=== PATIENT | male | born 1995 | race Caucasian/White ===

== ENCOUNTER 2023-01-24 10:39 | Emergency (ER) | payer SELFPAY ==
[2023-01-24 10:41] VITALS: BP 139/89; PULSE 60; RESP 14; TEMP 36.2; O2SAT 99; BMI 21.4
--- NOTE | 2023-01-24 10:52 | EX.ED.UPPERE ---
HPI History of Present Illness Chief Complaint: Upper Extremity Injury Detail of Chief Complaint: Injury left long finger 1 week ago at work Informant: patient Occured/Mechanism Comment: Sidra. He felt it did not go to the bone and did not seek medical attention. He presents now because of redness and swelling. Onset/Context/Timing Onset: Days Context: Sudden Onset Timing: Continuous Quality of Pain: Dull and Aching Current Severity: Mild Maximum Severity: Moderate Worsened by: Palpation Relieved by: Nothing Associated Symptoms Associated Symptoms: Negative for Parasthesia, Weakness or Loss of Funtion Narrative Narrative: Patient is a 27-year-old male who presents because of redness and swelling to his left long finger. He is right-hand. He injured the finger a week ago at work. He did not seek medical attention at that time. He has no allergies. He is on no medication. He has no past medical history. He denies fever or chills. He denies paresthesia, anesthesia or motor weakness. Tetanus Immunization: 5-10 years Prior similar symptoms: No Recent Illness/Hospitalization: No [facility] Medical History (Updated 01/24/23 @ 11:[address] Juan Suazo MD) Work related injury Medical History no medical history no medical history Allergy/AdvReac Type Severity Reaction Status Date / Time No Known Allergies Allergy Verified 01/24/23 10:44 Surgical History no surgical history no surgical history Social History Smoking Status: Unknown if ever smoked ROS ROS ED Constitutional Constitutional ED: Denies chills, fever(s) or subjective Integumentary Reports rash Hematologic/Lymphatic Hematologic/Lymphatic: Denies easy bleeding or easy bruising EXAM Physical Exam Const Vital Signs: 01/24/23 10:41 Temperature 97.2 F L Temperature Source Temporal Pulse Rate 60 Respiratory Rate 14 Blood Pressure 139/89 H Blood Pressure Mean 105 Pulse Ox 99 Oxygen Delivery Method Room Air Positive well nourished and well developed General Appearance ED: well developed and NAD HEENT Reports moist mucous membranes normocephalic and atraumatic Eyes PERRL and EOMs intact bilaterally Neck full ROM and supple Resp normal respiratory effort Cardio regular rate and regular rhythm Extremity Extremity Narrative: There is swelling radial side left long finger. Sensation is intact. Capillary refill is normal. The extensor commonest tendon is functionally intact. The flexor digitorum superficialis and flexor digitorum profundus are intact. Neuro oriented x3, CN's II-XII intact bilaterally, no focal motor deficits and no sensory deficits noted Sensorium / Orientation: alert Psych mental status grossly normal Skin Skin Narrative: Slight erythema radial side of left long finger consistent with paronychia. There appears to be fluctuance. MDM MDM MDM Narrative Medical decision making narrative: Concern patient has paronychia. Attempted to unroofed with hypodermic needle. Blood was obtained. There was no purulent material noted. In light of this will perform formal I&D over the area of redness and fluctuance. There is no induration. There is no lymphangitis. There is no epitrochlear lymphadenopathy. Procedures Other Procedures Procedure(s): I&D abscess left long finger. Carpal block was placed. Patient still felt needlestick. The digit was anesthetized by digital block. Incision was made radial side with a 15 blade. Incision length 5 mm. There was a small pocket of purulent material that was noted. Blunt dissection revealed slightly more purulent material. Since there is no cellulitis antibiotics were not ordered. Discharge Plan Triage Chief Complaint: Upper Extremity Injury ED Provider: Juan Suazo Dx/Rx/DC Orders Clinical Impression: Abscess of left middle finger Instructions: ED Abscess Incision And Drainage Primary Care Provider: Care Physician,No Primary Referrals: Christiane Spicer [Non-Staff] - 2 Days for wound check Care Physician,No Primary [Primary Care Provider] - Disposition Disposition: Home, Self Care
[2023-01-24] MEDS: Lidocaine 1% (20 ml mdv) 20 ML Vial INFILT (10:57)
--- NOTE | 2023-01-24 12:10 | ED.RN ---
pt did not want to file workers comp
== END 2023-01-24 12:11 | disposition home or self-care (01) ==
PROVIDERS: Emergency Provider Emergency Medicine; Visit Provider Emergency Medicine
DX: L02.512 Cutaneous abscess of left hand (principal)
CPT/HCPCS: 26010; 99282

== ENCOUNTER 2023-05-20 22:56 | Emergency (ER) | payer SELFPAY ==
[2023-05-20 22:57] VITALS: BP 140/80; PULSE 69; RESP 20; TEMP 35.7; O2SAT 98; BMI 23.6
--- NOTE | 2023-05-20 23:07 | RAD_ITS ---
STUDY: X-RAY - RIGHT WRIST REASON FOR EXAM: Male, 28 years old. injury TECHNIQUE: 3 view(s) of the wrist were obtained. COMPARISON: None. FINDINGS: Normal visualized distal radius and ulna. Normal radiocarpal articulation. Normal distal radioulnar articulation. Subtle step-off with lucency through the triquetrum/distal forearm bone, cannot exclude a fracture. Normal carpal articulations. Normal carpometacarpal articulation of the thumb. Normal second through fifth carpometacarpal articulations. Normal visualized metacarpal bones. Soft tissue swelling through the distal forearm and dorsum of the wrist. There is no demonstrated acute fracture. RAD/Wrist min 3 Views IMPRESSION: Soft tissue swelling as described. Cannot exclude fracture through the pisiform/triquetrum. Correlation with physical exam and clinical history recommended. If indicated, this may be further assessed with CT of the wrist. Electronically Signed: Talia Caro MD at 23:35 EST ,
--- NOTE | 2023-05-20 23:08 | EX.ED.UPPERE ---
HPI History of Present Illness Chief Complaint: Upper Extremity Injury Informant: patient Occured/Mechanism Mechanism/Context: Yes injury Comment: fell off skateboard while going down a hill, injured R wrist only; unsure of exact mechanism of injury to it Onset/Context/Timing Onset: Today Context: Sudden Onset Timing: Continuous Quality of Pain: Aching Location: R wrist Current Severity: Moderate Maximum Severity: Moderate Worsened by: movement Relieved by: remaining still Narrative Narrative: [facility] Medical History TBI (traumatic brain injury) Work related injury Home Medications NK 05/20/23 [History Last Taken Unknown] Allergy/AdvReac Type Severity Reaction Status Date / Time No Known Allergies Allergy Verified 05/20/23 22:58 Social History Smoking Status: Current some day smoker tobacco type: cigarettes and e-cigarettes ROS ROS ED Constitutional Constitutional ED: Denies chills or fever(s) Musculoskeletal Musculoskeletal: Reports extremity pain; Denies neck pain Integumentary Denies Abrasions, rash or wounds Neurologic Neurologic: Denies paresthesias or weakness EXAM Physical Exam Const Vital Signs: 05/20/23 22:57 Temperature 96.2 F L Temperature Source Temporal Pulse Rate 69 Respiratory Rate 20 H Blood Pressure 140/80 H Blood Pressure Mean 100 Pulse Ox 98 Oxygen Delivery Method Room Air Positive well nourished and well developed General Appearance ED: well developed and NAD Neck full ROM and supple Back/Spine normal ROM and normal to inspection Extremity Extremity Narrative: Limited range of motion to the right wrist. Tenderness mostly mid dorsal carpus, mild swelling and tenderness of the distal ulna but none to distal radius. No tenderness in the snuffbox. No tenderness in the metacarpals or otherwise in the hand and no tenderness in the elbow/radial head. Neuro oriented x3, no focal motor deficits and no sensory deficits noted Sensorium / Orientation: alert Psych mental status grossly normal and thought process normal Skin no wounds Rashes: no rashes MDM MDM MDM Narrative Medical decision making narrative: Three-view x-ray series of the right wrist on my interpretation shows possibility of a nondisplaced fracture through the pisiform. Interestingly, radiology was in agreement that this was unable to be ruled out and suspicious. I do not think further imaging is necessary since this is consistent with where the patient has pain and tenderness. Therefore he was splinted. See the procedure note. He will follow-up with orthopedics. Procedures Upper Extremity Splints Upper Extremity Splint: Orthoglass and - (short arm AP) Splint Fabrication: Fabricated (NVID after placement) Location: Right Discharge Plan Triage Chief Complaint: Upper Extremity Injury ED Provider: Demetri Granda Dx/Rx/DC Orders Clinical Impression: Fracture of right wrist Instructions: ED Fracture, Wrist, General Prescriptions: No Action NK Primary Care Provider: Care Physician,No Primary Referrals: Venkata Ramsey MD [Med Staff - Active Staff] - (call for appt to be seen within next 2 weeks) Care Physician,No Primary [Primary Care Provider] - Disposition Disposition: Home, Self Care
[2023-05-21] MEDS: traMADol 50 MG Tablet PO (00:20)
[2023-05-21 00:22] VITALS: BP 122/68; PULSE 88; RESP 16; TEMP 36.7; O2SAT 98
== END 2023-05-21 00:22 | disposition home or self-care (01) ==
PROVIDERS: Emergency Provider Emergency Medicine; Visit Provider Emergency Medicine
DX: S62.101A Fracture of unspecified carpal bone, right wrist, initial encounter for closed fracture (principal); F17.210 Nicotine dependence, cigarettes, uncomplicated; V00.131A Fall from skateboard, initial encounter; Y93.51 Activity, roller skating (inline) and skateboarding; Y92.89 Other specified places as the place of occurrence of the external cause; F17.290 Nicotine dependence, other tobacco product, uncomplicated
CPT/HCPCS: 29125; 73110; 99282

== ENCOUNTER 2023-07-12 19:25 | Emergency (ER) | payer SELFPAY ==
[2023-07-12 19:26] VITALS: BP 131/83; PULSE 66; RESP 18; TEMP 36.9; O2SAT 99; BMI 22.9
--- NOTE | 2023-07-12 19:54 | CT_ITS ---
STUDY: CT BRAIN WITHOUT CONTRAST REASON FOR EXAM: Male, 28 years old. Injury RADIATION DOSAGE (If Supplied By Facility): CTDIvol = ( 45 ) mGy, DLP = ( 813 ) mGycm TECHNIQUE: Transaxial CT imaging of the brain was performed without administration of intravenous contrast material. Individualized dose optimization techniques were used for this CT. COMPARISON: No relevant prior comparison study available FINDINGS: PARENCHYMA: There is an old left temporoparietal infarct with encephalomalacia. There is no acute bleed or infarct. There are normal white matter tracts. VENTRICLES: There is no hydrocephalus. MASTOID AIR CELLS AND PARANASAL SINUSES: The visualized paranasal sinuses are clear. The mastoid air cells are clear. BONES: There is no skull fracture. There are postsurgical changes from a left-sided craniotomy. SOFT TISSUES: The visualized soft tissues are within normal limits. CT/Brain/Head without Contrast IMPRESSION: No acute intracranial abnormality. 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 Postsurgical changes from a left-sided craniotomy. Electronically Signed: Feliz William MD at 20:48 EDT ,
--- NOTE | 2023-07-12 19:54 | CT_ITS ---
We are attempting to reach an attending provider to discuss findings. An addendum with communication details will be sent when the communication is complete. STUDY: CT CERVICAL SPINE WITHOUT CONTRAST REASON FOR EXAM: Male, 28 years old. Injury. RADIATION DOSAGE (If Supplied By Facility): CTDIvol = ( 44.99 ) mGy, DLP = ( 812.98 ) mGycm TECHNIQUE: High resolution transaxial imaging was performed without contrast material. Sagittal and coronal images were reconstructed. Individualized dose optimization techniques were used for this CT. COMPARISON: No relevant prior comparison study available FINDINGS: BONES: There is no fracture in the cervical spine. The dens is intact. The vertebral body heights are maintained. ALIGNMENT: There is no dislocation. Alignment is normal. DISC SPACES: The vertebral spaces are well-maintained. LUNG APICES: There is a small right apical pneumothorax. A dedicated chest CT is recommended. SOFT TISSUES: The visualized paraspinal soft tissues are within normal limits. CT/Spine Cervical without Contras IMPRESSION: No fracture or dislocation in the cervical spine. Small right apical pneumothorax. A dedicated chest CT is recommended. Electronically Signed: Feliz William MD at 20:58 EDT ,
--- NOTE | 2023-07-12 19:54 | CT_ITS ---
INDICATION: injury EXAMINATION: CT FACIAL BONES - CT Maxillofacial W/O Contrast Injection TECHNIQUE: Helically acquired images were obtained of the facial bones. A radiation dose optimization technique was used for this scan. IV Contrast dosage and agent: None. RADIATION DOSAGE (If Supplied By Facility): CTDIvol = ( 29.38 ) mGy, DLP = ( 591.53 ) mGycm COMPARISON: No relevant prior comparison study available FINDINGS: SOFT TISSUES: No focal subcutaneous swelling. No discrete fluid collections. VISUALIZED PARANASAL SINUSES: Clear. VISUALIZED MASTOID AIR CELLS: Clear. FACIAL BONES, MANDIBLE AND TMJs: No displaced facial bone fracture. No lytic or blastic abnormality. VISUALIZED DENTITION: No periodontal osseous erosion. ORBITAL CONTENTS: Both globes, extraocular muscles and retrobulbar fat appear unremarkable. CT/Sinus/Facial Bone IMPRESSION: Unremarkable CT of the facial bones. Electronically Signed: Feliz William MD at 21:33 EDT ,
--- NOTE | 2023-07-12 19:55 | EDS_ITS ---
HPI History of Present Illness Chief Complaint: Trauma Informant: patient Onset/Context/Timing Onset: Today Narrative Narrative: Patient presents after wrecking his skateboard. He states injury occurred a couple hours ago. He states the back wheels locked up causing him to fall. He has abrasions to the left side of his face as well as left lower flank and left elbow. He states he has had vomiting since the injury. He is not sure if he lost consciousness. [facility] Medical History (Updated 07/12/23 @ 22:[address] Aiyana Fuentes MD) Seizures TBI (traumatic brain injury) Home Medications NK 05/20/23 [History Last Taken Unknown] Allergy/AdvReac Type Severity Reaction Status Date / Time No Known Allergies Allergy Verified 07/12/23 19:29 Social History Smoking Status: Current some day smoker tobacco type: cigarettes and e- cigarettes ROS ROS ED Constitutional Constitutional ED: Denies chills or fever(s) Eyes Eyes: Denies change in vision ENT ENT ED: Denies sore throat Cardiovascular Cardiovascular: Denies chest pain or palpitations Respiratory/Chest Respiratory/Chest: Denies cough or dyspnea Gastrointestinal Gastrointestinal: Reports nausea and vomiting; Denies abdominal pain Musculoskeletal Musculoskeletal: Reports neck pain Integumentary Reports Abrasions Neurologic Neurologic: Reports headache(s) Psychiatric Psychiatric: Denies anxiety or depression EXAM Physical Exam Const Vital Signs: 07/12/23 19:26 07/12/23 19:39 07/12/23 21:00 Temperature 98.4 F Temperature Source Temporal Pulse Rate 66 Respiratory Rate 18 Respiratory Effort Normal Non-Labored Respiratory Depth Normal Respiratory Pattern Normal Blood Pressure 131/83 H Blood Pressure Mean 99 Pulse Ox 99 Oxygen Delivery Method Room Air Room Air Non-Rebreather 07/12/23 22:09 Temperature 98 F Temperature Source Temporal Pulse Rate 47 L Respiratory Rate 16 Respiratory Effort Respiratory Depth Respiratory Pattern Blood Pressure 123/75 H Blood Pressure Mean 91 Pulse Ox 100 Oxygen Delivery Method Non-Rebreather Positive well nourished and well developed General Appearance ED: well developed HEENT HEENT Narrative: Abrasions noted to the left forehead and just lateral to the left eye. Extraocular movements fully intact. Pupils equal and reactive. Eyes PERRL and EOMs intact bilaterally Neck Neck Narrative: Mild C-spine tenderness with no step-offs. Chest Wall inspection of chest normal and palpation of chest normal Resp normal respiratory effort and clear to auscultation bilaterally Cardio regular rhythm Rate: regular rate GI non-tender Palpation: soft Back/Spine no thoracic nor lumbar tenderness Back/Spine Narrative: Superficial abrasions noted to the left lower flank. Extremity Extremity Narrative: Abrasions noted over the extensor portion of the left elbow. Good range of motion. Strong distal pulses. Neuro oriented x3, moves all extremities, no focal motor deficits and no sensory deficits noted Psych mental status grossly normal MDM MDM MDM Narrative Medical decision making narrative: Patient is given Zofran and Tylenol for pain and nausea. CT scan of the head, C-spine, and facial bones obtained to evaluate for fracture, bleed, edema. Left elbow x-ray obtained to evaluate for any acute bony abnormality, fracture, dislocation. Given the abrasions to the left lower flank a UAC will be obtained to evaluate for any hematuria. History & Record Review Discussion w/independent historian: Patient Lab Data Labs: Laboratory Results - last 24 hr 07/12/23 20:35 Urine Color Yellow Urine Clarity Clear Urine pH 5.0 Ur Specific [place] 1.025 Urine Protein 30 H Urine Glucose (UA) Normal Urine Ketones 15 H Urine Occult Blood 10 H Urine Nitrite Negative Urine Bilirubin 1 H Urine Urobilinogen 1 H Ur Leukocyte Esterase Negative Urine RBC 0-5 SEEN Urine WBC 0 SEEN Ur Squamous Epith Cells 0 SEEN Urine Bacteria 0 SEEN Urine Mucus 1+ Radiography Diagnostic Testing: Clinical Impression(s) from Imaging Studies Brain CT 07/12/23 19:54 IMPRESSION: No acute intracranial abnormality. 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 Postsurgical changes from a left-sided craniotomy. Electronically Signed: Feliz William MD at 20:48 EDT , Cervical Spine CT 07/12/23 19:54 IMPRESSION: No fracture or dislocation in the cervical spine. Small right apical pneumothorax. A dedicated chest CT is recommended. Electronically Signed: Feliz William MD at 20:58 EDT , ADDENDUM: 07/12/232117 IMPRESSION: No fracture or dislocation in the cervical spine. Small right apical pneumothorax. A dedicated chest CT is recommended. N.B. : The above Results were Read Back by Feliz William MD to Aiyana Singh MD, and understanding confirmed on 07/12/2023 21:11:45 (ET). Electronically Signed: Feliz William MD at 20:58 EDT , Facial/Sinus 07/12/23 19:54 IMPRESSION: Unremarkable CT of the facial bones. Electronically Signed: Feliz William MD at 21:33 EDT , Elbow X-Ray 07/12/23 20:20 IMPRESSION: No fracture or dislocation. Electronically Signed: Feliz William MD at 20:59 EDT , Chest CT 07/12/23 21:16 IMPRESSION: Tiny right apical pneumothorax approximating 6 mm in size of uncertain etiology without definitive evidence for acute rib fracture Old granulomatous disease on the left. Electronically Signed: Mark Watkins MD at 21:45 EDT , Treatment and Re-Evaluation Narrative: Patient continued to have vomiting after Tylenol and Zofran. He was given IM Phenergan and this significantly improved his symptoms. Left elbow x-ray per my interpretation reveals no evidence of acute bony injury. Radiology interpretation reviewed and agrees. CT scan of the head reveals no acute intracranial injury. An old left temporoparietal infarct with encephalomalacia is noted. CT scan of the facial bones is unremarkable. CT scan of the C-spine reveals no fracture or dislocation the C-spine. A small right apical pneumothorax is noted and a dedicated chest CT is recommended. CT scan of the chest obtained. There is a tiny right apical pneumothorax measuring 6 mm in size of uncertain etiology without definitive evidence of acute rib fracture. Prior to the patient getting his chest CT, he was placed on nonrebreather. His O2 sats remained at 100%. Final imaging studies were all reviewed with the patient. I did recommend transfer to a trauma center given his concussion indicated by head injury with vomiting as well as the small right apical pneumothorax. At this time patient would like to sign out AGAINST MEDICAL ADVICE. He states that he understands that he could have worsening neurologic symptoms and could develop a full pneumothorax to extend to tamponade and . Patient is alert and oriented and appropriate. He does not appear to be under the influence of any substances that would limit his ability to make his decisions. Discharge Plan Triage Chief Complaint: Trauma ED Provider: Aiyana Fuentes Dx/Rx/DC Orders Clinical Impression: Contusion of elbow, Pneumothorax, Concussion, Closed head injury, Abrasion of face Instructions: Pneumothorax (Collapsed Lung), ED Concussion, ED Head Injury (Adult) Prescriptions: No Action NK Primary Care Provider: Care Physician,No Primary Referrals: Kyle Jacinto MD [Non-Staff] - As Needed Care Physician,No Primary [Primary Care Provider] - Activity Restrictions/Additional Instructions: As discussed, your CT scan reveals a small right upper pneumothorax (collapsed lung). This measures approximately 6 mm in size. Given your vomiting after head injury I also have diagnosed you with a concussion. I have recommended transfer to a trauma center for both of these conditions, however at this time you are refusing and would like to sign out AGAINST MEDICAL ADVICE. You understand that you could have further neurologic symptoms such as increasing headache, persistent vomiting, decreased level of consciousness, brain swelling. Your collapsed lung can also worsen to lead to significant shortness of breath, problems with your heart rate and rhythm, and .
[2023-07-12] MEDS: Acetaminophen 500 MG Tablet 1000 MG PO (20:04)
[2023-07-12] MEDS: Ondansetron ODT 4 MG Tablet PO (20:05)
--- NOTE | 2023-07-12 20:20 | RAD_ITS ---
STUDY: X-RAY - LEFT ELBOW REASON FOR EXAM: Male, 28 years old. Injury TECHNIQUE: 3 view(s) of the elbow. COMPARISON: None. FINDINGS: There is no evidence of fracture or dislocation. There are no significant degenerative changes. There are no radiodense foreign bodies. RAD/Elbow min 3 Views IMPRESSION: No fracture or dislocation. Electronically Signed: Feliz William MD at 20:59 EDT ,
[2023-07-12 20:40] LABS: Bacteria 0 SEEN /hpf (None Seen); Squamous Epithelial Cells - UA 0 SEEN /hpf (0-5); White Blood Cells 0 SEEN /hpf (0-5)
[2023-07-12 20:42] LABS: Color, Urine Yellow (Yellow); Glucose, Dipstick Normal (Normal); Ketone-Dipstick 15 mg/dl (Negative); Leukocyte Esterase-Dipstick Negative /ul (Negative); Nitrite-Dipstick Negative (Negative); Occult Blood-Urine 10 /ul (Negative); Protein-Dipstick 30 mg/dl (Negative); Specific Gravity, Urine 1.025 (1.002-1.030); Urine Clarity Clear (Clear); Urine Urobilinogen 1 mg/dl (Normal)
[2023-07-12] MEDS: proMETHazine 25 MG/ML Syringe 12.5 MG IM (20:45)
[2023-07-12 21:04] LABS: Urine Bilirubin Dipstick 1 mg/dL (Negative)
[2023-07-12 21:15] LABS: Mucous, Urine 1+ /hpf (<or=2+); Red Blood Cells-Urine 0-5 SEEN /hpf (0-5)
--- NOTE | 2023-07-12 21:16 | CT_ITS ---
INDICATION: pneumothorax EXAMINATION: CT CHEST WITHOUT CONTRAST - CT Chest W/O Contrast Injection TECHNIQUE: Helically acquired images were obtained of the chest. A radiation dose optimization technique was used for this scan. IV Contrast dosage and agent: None. COMPARISON: None. FINDINGS: LUNGS, PLEURA AND LARGE AIRWAYS: No masses, consolidation, or edema. Tiny calcified granuloma in left upper lobe No pleural effusion or thickening. Tiny right apical pneumothorax approximating 6 mm in size THYROID: No thyroid lesions. HEART AND PERICARDIUM: Heart size is normal. No pericardial effusion. CORONARY ARTERIES: Coronary artery calcification VESSELS: Thoracic aorta is not dilated. MEDIASTINUM AND TYRELL: Tiny calcified left hilar node Esophagus is unremarkable. No hiatal hernia. UPPER ABDOMEN: No acute pathology. BONES: No suspicious lytic or blastic abnormality. CT/Chest without Contrast IMPRESSION: Tiny right apical pneumothorax approximating 6 mm in size of uncertain etiology without definitive evidence for acute rib fracture Old granulomatous disease on the left. Electronically Signed: Mark Watkins MD at 21:45 EDT ,
[2023-07-12 22:09] VITALS: BP 123/75; PULSE 47; RESP 16; TEMP 36.6; O2SAT 100
[2023-07-12 22:46] VITALS: BP 128/70; PULSE 50; RESP 16; TEMP 36.3; O2SAT 97
--- NOTE | 2023-07-12 22:46 | ED.RN ---
This RN educated the patient on a pneumothorax and the discharge/ AMA paperwork. The patient is agreeable to the plan and will return if he feels like he needs to be transferred to a trauma center/ emergency services. The patient is aware of the serious medical risks that can occur due to the pneumothorax and concussion that he has and still insists on leaving. AMA paperwork was given and signed.
== END 2023-07-12 22:49 | disposition home or self-care (01) ==
PROVIDERS: Emergency Provider Emergency Medicine; Visit Provider Emergency Medicine
DX: S06.0X0A Concussion without loss of consciousness, initial encounter (principal); F17.210 Nicotine dependence, cigarettes, uncomplicated; S00.81XA Abrasion of other part of head, initial encounter; J93.9 Pneumothorax, unspecified; V00.131A Fall from skateboard, initial encounter; Y93.51 Activity, roller skating (inline) and skateboarding; F17.290 Nicotine dependence, other tobacco product, uncomplicated; S50.02XA Contusion of left elbow, initial encounter
CPT/HCPCS: 70450; 70486; 71250; 72125; 73080; 81001; 99283; J7030